=== PATIENT | male | born 1995 | race Caucasian/White ===

== ENCOUNTER 2017-01-11 20:53 | Emergency (ER) | payer OTHER ==
[~2017-01-11] VITALS: Ht 182.9 cm; Wt 80.8 kg
[2017-01-11 21:03] VITALS: TEMP 36.7; Ht 182.9 cm; Wt 80.8 kg
--- NOTE | 2017-01-11 22:31 | DIAGNOSTIC IMAGING REPORT ---
RIGHT KNEE 3 VIEWS CLINICAL HISTORY: R knee injury Right trauma COMPARISON: None DISCUSSION: Prior anterior cruciate ligament repair. No acute bony abnormality. Cortical margins are intact. No significant joint effusion. There is no evidence for soft tissue swelling. IMPRESSION: No acute process. Electronically signed by: Gamaliel Carver M.D. 01/11/2017 10:29 PM Dictated Date/Time: 01/11/2017 10:28 PM
[2017-01-11 22:54] VITALS: BP 139/87; PULSE 107; O2SAT 99
--- NOTE | 2017-01-13 02:28 | EMERGENCY ROOM VISIT NOTE ---
ED Visit Note First contact with patient: 21:55 Chief Complaint: Right knee dislocation. History of Present Illness: Mr. Flower is a 21-year-old male who ambulates into the ED complaining of a possible right knee dislocation. Historically patient reports he's had corrective surgery on the right knee for cruciate ligament damage and meniscus damage. He reports since the surgeries dislocated his knee 3 or 4 times and he normally is able to put it back in place on his own. Patient reports approximate 30 minutes ago he was playing soccer and felt like his knee dislocated. He reports he attempted multiple times to possibly reduce his dislocation but was unsuccessful. Currently patient is complaining of pain over the lateral aspect of the knee. He describes his pain as an achy sensation. He rates his discomfort 4/10. His pain is nonradiating. His pain worsens with the last few degrees of extension and flexion beyond 90. He has not identified any alleviating factors related to the pain. He has not taken a medication for pain prior to arrival at the hospital. He denies any associated symptoms including hip pain, thigh pain, lower leg pain, ankle pain, leg weakness/numbness/tingling. Review of Systems: As noted above in history of present illness. Past Medical History: As previously noted, unspecified skin disorder. Current Medications: Patient denies. Allergies to Medications: Patient denies. Social History: Patient is currently University student; he feels safe in his home environment; he denies tobacco use and admits to alcohol use. Physical Examination: Vital Signs: Date Time Temp Pulse Resp B/P Pulse Ox O2 Delivery O2 Flow Rate FiO2 01/11/17 22:54 107 18 139/87 99 Room Air 01/11/17 21:03 36.7 113 18 138/76 100 Room Air GENERAL: 21-year-old male in mild distress due to pain, nontoxic-appearing, afebrile and hemodynamically stable. NEUROLOGICAL: Awake, alert and oriented to person, place and time. Answering questions appropriately and following commands. SKIN: Warm, dry and pink. No soft tissue injuries. RIGHT LOWER EXTREMITY: No gross bony deformity. No shortening or malrotation. No tenderness over the hip, thigh, lower leg or ankle. Mild tenderness over the anterior lateral aspect of the knee. The patella has a normal position and was minimally tender to palpation. Ballottement test is negative. Negative patellar apprehension test. Positive bounce test. No lateral or cruciate or collateral ligamentous structures when compared bilaterally. He had near full range of motion of the knee except for the last few degrees of extension and flexion beyond 90. With the knee stabilized here full range of motion at the hip and ankle against resistance. Throughout the lower leg skin was warm and pink and capillary refill is brisk. He is able to distinguish light sensations through all dermatomes. I attempted to do a Estevan's test and it was difficult due to his pain but I did not feel any significant popping or grinding. ED Course: Patient is assessed as noted above. Patient is given ice for pain and comfort; he refused pain medication. Right Knee X-Rays: Were read by myself and the radiologist showing no acute fractures or dislocations. Prior anterior cruciate ligament repair was noted. No joint effusions or soft tissue swelling. Patient was placed in a knee immobilizer and on nonweightbearing crutches. Patient was educated about tonight's findings and instructed on his treatment plan; he verbalizes understanding and agreement with this plan. Clinical Impression: Right knee pain. Disposition: Patient discharged home in stable condition accompanied by female friends; prior to departure he was reassessed and subjectively reported he was feeling better and rated his discomfort 2/10. Plan: Comfort measures were discussed with the patient. Patient was encouraged to follow-up with orthopedics if no better in 5-6 days. Patient was encouraged return the ED for worsening/uncontrolled pain, uncontrolled swelling, leg weakness/numbness/tingling or any new/concerning symptoms.
== END 2017-01-11 22:55 | disposition home or self-care (01) ==
LOC: C.EDB 20:55 → C.EDD 22:55
DX: M25.561 Pain in right knee (principal); S83.104A Unspecified dislocation of right knee, initial encounter; X58.XXXA Exposure to other specified factors, initial encounter; Y93.66 Activity, soccer